=== PATIENT | male | born 1945 | race Caucasian/White ===

== ENCOUNTER 2017-05-03 08:00 | Outpatient (CLI) | payer MEDICARE, MEDICAID ==
[2017-05-03 12:59] LABS: BASOPHILS # (AUTO) 0.2 10^3/uL (0.0-0.1); BASOPHILS % (AUTO) 3.1 %; EOSINOPHILS # (AUTO) 0.3 10^3/uL (0.0-0.7); EOSINOPHILS % (AUTO) 3.9 %; HCT - HEMATOCRIT 38.2 % (42.0-52.0); HGB - HEMOGLOBIN 12.7 g/dL (14.0-18.0); LYMPHOCYTES # (AUTO) 2.4 10^3/uL (1.5-3.5); LYMPHOCYTES % (AUTO) 36.2 %; MEAN CORPUSCULAR HEMOGLOBIN 31.2 pg (27.0-31.0); MEAN CORPUSCULAR HGB CONC 33.3 g/dL (32.0-36.0); MEAN CORPUSCULAR VOLUME 93.5 fL (80.0-94.0); MEAN PLATELET VOLUME 8.8 fL (7.4-11.4); MONOCYTES # (AUTO) 0.7 10^3/uL (0.0-1.0); NEUTROPHILS % (AUTO) 45.8 %; NUCLEATED RED BLOOD CELLS AUTO 0.1 /100WBC; RED BLOOD COUNT 4.08 10^6/uL (4.70-6.10); RED CELL DISTRIBUTION WIDTH 13.3 % (12.0-15.0); UNCORRECTED WHITE BLOOD COUNT 6.6 x10^3/uL; WHITE BLOOD COUNT 6.6 x10^3/uL (4.8-10.8)
[2017-05-03 13:21] LABS: ALBUMIN/GLOBULIN RATIO 1.4 (1.0-2.2); CALCIUM 9.2 mg/dL (8.5-10.3); CREATININE 0.7 mg/dL (0.6-1.2); POTASSIUM 3.5 mmol/L (3.5-5.0); TOTAL PROTEIN 7.2 g/dL (6.7-8.2)
== END 2017-05-03 08:01 | disposition home or self-care (01) ==
LOC: LAB.N 08:00
PROVIDERS: ATTEND Family Medicine
DX: F03.90 Unspecified dementia, unspecified severity, without behavioral disturbance, psychotic disturbance, mood disturbance, and anxiety (principal)
CPT/HCPCS: 36415; 80053; 84443; 85025

== ENCOUNTER 2017-05-08 14:58 | Outpatient (CLI) | payer MEDICARE, MEDICAID ==
--- NOTE | 2017-05-09 19:47 | CT Report ---
DATE OF SERVICE: 05/08/2017 CT HEAD WITHOUT CONTRAST: 05/08/2017 CLINICAL INDICATION: Dementia, memory loss TECHNIQUE: Axial CT images of the brain were obtained without intravenous contrast. No previous exa m is available for comparison. In accordance with CT protocol optimization, one or more of the following dose reduction techniques w ere utilized for this exam: Automated exposure control, adjustment of mA and/or KV based on patient size , or use of iterative reconstructive technique. FINDINGS: The ventricles and sulci demonstrate mild symmetric enlargement, compatible with atrophy. Chronic ischemic changes are seen in the periventricular white matter structures. There is no evidence of intracranial hemorrhage, mass effect, or midline shift. The basilar cisterns are patent. The visual ized orbital contents and paranasal sinuses are unremarkable. IMPRESSION: Mild atrophy and chronic ischemic changes. No evidence of acute hemorrhage or mass effe ct. TD: 05/09/2017 09:46
== END 2017-05-08 14:59 | disposition home or self-care (01) ==
LOC: DI 14:58
PROVIDERS: ATTEND Family Medicine
DX: F03.90 Unspecified dementia, unspecified severity, without behavioral disturbance, psychotic disturbance, mood disturbance, and anxiety (principal); R41.3 Other amnesia; G31.9 Degenerative disease of nervous system, unspecified; I67.82 Cerebral ischemia
CPT/HCPCS: 70450

== ENCOUNTER 2017-10-21 10:07 | Outpatient (CLI) | payer MEDICARE, MEDICAID ==
[2017-10-21 13:31] LABS: BILIRUBIN,URINE NEGATIVE (NEGATIVE); GLUCOSE, URINE (UA) NEGATIVE (NEGATIVE); KETONES,URINE (UA) NEGATIVE (NEGATIVE); LEUKOCYTE ESTERASE, URINE NEGATIVE (NEGATIVE); NITRITE,URINE NEGATIVE (NEGATIVE); OCCULT BLOOD,URINE NEGATIVE (NEGATIVE); PROTEIN,URINE NEGATIVE (NEGATIVE); UROBILINOGEN,URINE 0.2 (NORMAL) E.U./dL (NORMAL)
[2017-10-21 13:37] LABS: BASOPHILS # (AUTO) 0.2 10^3/uL (0.0-0.1); BASOPHILS % (AUTO) 2.8 %; EOSINOPHILS # (AUTO) 0.3 10^3/uL (0.0-0.7); EOSINOPHILS % (AUTO) 3.9 %; HGB - HEMOGLOBIN 11.9 g/dL (14.0-18.0); LYMPHOCYTES # (AUTO) 2.6 10^3/uL (1.5-3.5); LYMPHOCYTES % (AUTO) 38.1 %; MEAN CORPUSCULAR HEMOGLOBIN 31.8 pg (27.0-31.0); MEAN CORPUSCULAR HGB CONC 32.8 g/dL (32.0-36.0); MEAN CORPUSCULAR VOLUME 96.9 fL (80.0-94.0); MEAN PLATELET VOLUME 7.8 fL (7.4-11.4); MONOCYTES # (AUTO) 0.7 10^3/uL (0.0-1.0); MONOCYTES % (AUTO) 9.9 %; NEUTROPHILS # (AUTO) 3.1 10^3/uL (1.5-6.6); NEUTROPHILS % (AUTO) 45.3 %; PLT - PLATELET COUNT 494 10^3/uL (130-450); RED BLOOD COUNT 3.73 10^6/uL (4.70-6.10); WHITE BLOOD COUNT 6.9 x10^3/uL (4.8-10.8)
[2017-10-21 13:44] LABS: BACTERIA,URINE None Seen /HPF (None Seen); CLARITY,URINE CLEAR (CLEAR); RBC,URINE None Seen /HPF (0-5); SQUAMOUS EPITHELIAL CELL,UR RARE Squamous (<= Few)
[2017-10-21 13:57] LABS: THYROID STIMULATING HORMONE 2.73 uIU/mL (0.34-5.60)
[2017-10-21 14:06] LABS: ALBUMIN 3.4 g/dL (3.2-5.5); ALKALINE PHOSPHATASE 68 IU/L (42-121); ALT ALANINE AMINOTRANSFERASE 17 IU/L (10-60); AST ASPARTATE AMINOTRANSFERASE 20 IU/L (10-42); BILIRUBIN,TOTAL 0.6 mg/dL (0.2-1.0); BUN - BLOOD UREA NITROGEN 17 mg/dL (6-20); CALCIUM 9.3 mg/dL (8.5-10.3); CARBON DIOXIDE - CO2 27 mmol/L (21-32); CHLORIDE 105 mmol/L (101-111); CHOL/HDL RATIO 3.7 (<5.0); CHOLESTEROL 232 mg/dL; CREATININE 0.6 mg/dL (0.6-1.2); GFR - MDRD 133 (>89); GLUCOSE 92 mg/dL (70-100); HDL CHOLESTEROL 63 mg/dL; LDL CHOLESTEROL,CALCULATED 155 mg/dL; LDL/HDL RATIO 2.5 (<3.6); SODIUM 139 mmol/L (135-145); TOTAL PROTEIN 6.8 g/dL (6.7-8.2); VLDL CHOLESTEROL 14 mg/dL
== END 2017-10-21 10:08 | disposition home or self-care (01) ==
LOC: LAB.WCP 10:07
PROVIDERS: ATTEND Family Medicine
DX: R63.4 Abnormal weight loss (principal); F03.90 Unspecified dementia, unspecified severity, without behavioral disturbance, psychotic disturbance, mood disturbance, and anxiety
CPT/HCPCS: 36415; 80053; 80061; 81001; 82607; 83721; 84443; 85025

== ENCOUNTER 2019-05-01 15:49 | Emergency (ER) | payer MEDICARE, MEDICAID ==
[2019-05-01 16:01] VITALS: BP 128/74
--- NOTE | 2019-05-01 16:23 | ED Physician Documentation ---
PD HPI FOCAL NEURO - Stated complaint Stated Complaint: DIFFICULTY W/ MEMORY - Chief complaint Chief Complaint: Neuro - History obtained from History obtained from: Patient - History of Present Illness Timing - onset: Other (This is a 73-year-old gentleman who for the last 4 years or so has had memory difficulties. The moved up from [place], and has been ruminating on getting follow-up. He sought care today because his insurance became active today. There is no acute issue. He says for the last 4 years slowly he has been losing his memory and having trouble with his affairs. However that said in talking to him he still manages pretty well. He remembers what he had for breakfast, work on a car he drives. He knows where he lives. He says his only on occasion that his memory affects him.) Review of Systems Constitutional: denies: Fever, Chills Ears: denies: Drainage/discharge Nose: denies: Rhinorrhea / runny nose, Congestion Throat: denies: Sore throat PD PAST MEDICAL HISTORY - Allergies Allergies/Adverse Reactions: Allergies Allergy/AdvReac Type Severity Reaction Status Date / Time No Known Drug Allergies Allergy Verified 05/01/19 15:54 - Social History Does the pt smoke?: No Smoking Status: Former smoker PD ED PE NORMAL - Vitals Vital signs reviewed: Yes - General General: Alert and oriented X 3, Other (He is alert and oriented x3, he knows what he had for breakfast. He knows why he is here. He remembers the situation that caused him to seek care today which was specifically that his insurance just became active.) - HEENT HEENT: PERRL, EOMI - Neck Neck: Supple, no meningeal sign, No bony TTP - Cardiac Cardiac: RRR, No murmur - Respiratory Respiratory: No respiratory distress, Clear bilaterally - Abdomen Abdomen: Soft, Non tender - Back Back: No CVA TTP, No spinal TTP - Derm Derm: Normal color, Warm and dry - Extremities Extremities: No edema, No calf tenderness / cord - Neuro Neuro: Alert and oriented X 3, automotive fuel systems converter 2-12 intact, No motor deficit, No sensory deficit, Normal speech - Psych Psych: Normal mood, Normal affect Results - Vitals Vitals: Vital Signs - 24 hr 05/01/19 15:54 Temperature 36.5 C Heart Rate 83 Respiratory 14 Rate Blood Pressure 128/74 O2 Saturation 96 Oxygen O2 Source T-piece PD MEDICAL DECISION MAKING - ED course ED course: This is a 73-year-old gentleman with what seems like smoldering mild dementia. No evidence of emergency medical condition, primary care follow-up was advised. Departure - Departure Disposition: 01 Home, Self Care Clinical Impression: Dementia Qualifiers: Dementia type: unspecified type Dementia behavioral disturbance: without behavioral disturbance Qualified Code(s): F03.90 - Unspecified dementia without behavioral disturbance Condition: Good Record reviewed to determine appropriate education?: Yes Instructions: ED Dementia Caregiver Support, ED Dementia Alzheimer Follow-Up: [facility] [Provider Group] Comments: As discussed, it seems like you have mild dementia. There are some specific treatments for dementia but these are best discussed with your primary care physician as opposed to in the emergency department. Return for new or worsening symptoms. Follow-up with [address] physicians in Dr. Clement's office, call today or tomorrow for an appointment. At some point it may not be safe for you to drive or live alone anymore. It is always best to start to think about how you will manage your affairs when that time comes.
== END 2019-05-01 16:28 | disposition home or self-care (01) ==
LOC: ED 15:49
DX: F03.90 Unspecified dementia, unspecified severity, without behavioral disturbance, psychotic disturbance, mood disturbance, and anxiety (principal); Z87.891 Personal history of nicotine dependence
CPT/HCPCS: 99281; 99283

== ENCOUNTER 2019-09-16 09:49 | Emergency (ER) | payer MEDICARE, MEDICAID ==
[2019-09-16 10:54] LABS: BASOPHILS # (AUTO) 0.1 10^3/uL (0.0-0.1); BASOPHILS % (AUTO) 1.4 %; EOSINOPHILS # (AUTO) 0.3 10^3/uL (0.0-0.7); EOSINOPHILS % (AUTO) 3.4 %; HGB - HEMOGLOBIN 13.3 g/dL (14.0-18.0); LYMPHOCYTES # (AUTO) 3.2 10^3/uL (1.5-3.5); LYMPHOCYTES % (AUTO) 34.6 %; MEAN CORPUSCULAR HEMOGLOBIN 31.6 pg (27.0-31.0); MEAN CORPUSCULAR HGB CONC 32.6 g/dL (32.0-36.0); MEAN CORPUSCULAR VOLUME 96.9 fL (80.0-94.0); MEAN PLATELET VOLUME 9.7 fL (7.4-11.4); MONOCYTES % (AUTO) 11.1 %; NEUTROPHILS # (AUTO) 4.6 10^3/uL (1.5-6.6); NEUTROPHILS % (AUTO) 49.2 %; PLT - PLATELET COUNT 313 10^3/uL (130-450); RED BLOOD COUNT 4.21 10^6/uL (4.70-6.10); RED CELL DISTRIBUTION WIDTH 13.5 % (12.0-15.0); WHITE BLOOD COUNT 9.3 x10^3/uL (4.8-10.8)
[2019-09-16 11:07] LABS: ALBUMIN 3.8 g/dL (3.2-5.5); ALBUMIN/GLOBULIN RATIO 1.2 (1.0-2.2); BILIRUBIN,TOTAL 0.5 mg/dL (0.2-1.0); CALCIUM 8.9 mg/dL (8.5-10.3); CREATININE 0.7 mg/dL (0.6-1.2); MAGNESIUM 2.4 mg/dL (1.7-2.8); TOTAL PROTEIN 7.1 g/dL (6.7-8.2)
[2019-09-16 11:26] LABS: THYROID STIMULATING HORMONE 2.76 uIU/mL (0.34-5.60)
--- NOTE | 2019-09-16 11:34 | ED Physician Documentation ---
PD HPI ALTERED MENTAL STATUS - Stated complaint Stated Complaint: MEMORY LOSS - Chief complaint Chief Complaint: Neuro - History obtained from History obtained from: Patient - History of Present Illness Timing - onset: How many months ago (has noted several months (6 or more) of worsening short term memory. No noted headaches, vision changes, balance problems, nor focal weaknesses.) Timing - duration: Months Timing - details: Gradual onset, Waxing and waning Associated symptoms: No: Fever, Headache, Stiff neck, Dyspnea, Cough, NVD Contributing factors: No: Anticoagulated, Diabetic, New medication, Recent med change, Recent illness, Substance abuse Basline status: Alert and oriented X 3, Ambulatory Similar symptoms before: No diagnosis Recently seen: Emergency Dept (seen in ER few months ago with similar complaint, and was referred to local primary care clinic. He has not been able to make milan yet due to changed clinic openings. He was in area today and came to [facility] to make appt with primary care. had symptoms of memory problem, so was "talked into" being evaluated in ER.) Review of Systems Constitutional: denies: Fever, Chills, Myalgias Nose: denies: Rhinorrhea / runny nose, Congestion Throat: denies: Sore throat Respiratory: denies: Cough GI: denies: Nausea, Vomiting, Diarrhea : reports: Hesitancy. denies: Dysuria, Hematuria Skin: denies: Rash, Lesions Neurologic: denies: Focal weakness, Numbness, Difficulty speaking, Near syncope, Altered mental status, Headache Psychiatric: denies: Depressed, Anxiety, Insomnia PD PAST MEDICAL HISTORY - Past Medical History Past Medical History: No Cardiovascular: None Respiratory: None Neuro: None Endocrine/Autoimmune: None Psych: None Derm: None - Past Surgical History Past Surgical History: No - Present Medications Home Medications: Ambulatory Orders Medication Instructions Recorded Confirmed Ginkgo Biloba 500 mg PO DAILY #60 capsule 09/16/19 - Allergies Allergies/Adverse Reactions: Allergies Allergy/AdvReac Type Severity Reaction Status Date / Time No Known Drug Allergies Allergy Verified 09/16/19 10:10 - Social History Does the pt smoke?: No Smoking Status: Never smoker Does the pt drink ETOH?: No Does the pt have substance abuse?: No - Immunizations Immunizations are current?: Yes PD ED PE NORMAL - Vitals Vital signs reviewed: Yes - General General: Alert and oriented X 3, No acute distress, Well developed/nourished - HEENT HEENT: PERRL, EOMI, Moist mucous membranes, Pharynx benign - Neck Neck: Supple, no meningeal sign, No adenopathy, No bruit - Cardiac Cardiac: RRR, No murmur - Respiratory Respiratory: Clear bilaterally - Abdomen Abdomen: Soft, Non tender - Derm Derm: Normal color, Warm and dry - Extremities Extremities: No tenderness to palpate, Normal ROM s pain - Neuro Neuro: Alert and oriented X 3, gamemaster 2-12 intact, No motor deficit, No sensory deficit, Normal speech, Other Eye Opening: Spontaneous Motor: Obeys Commands Verbal: Oriented GCS Score: 15 - Psych Psych: Normal mood, Normal affect Results - Vitals Vitals: Vital Signs - 24 hr 09/16/19 09/16/19 09:52 11:54 Temperature 36 C L Heart Rate 80 70 Respiratory 16 15 Rate Blood Pressure 148/91 H 118/70 O2 Saturation 99 100 Oxygen O2 Source Room air - Labs Labs: Laboratory Tests 09/16/19 09/16/19 09/16/19 10:05 10:05 10:05 WBC 9.3 RBC 4.21 L Hgb 13.3 L Hct 40.8 L MCV 96.9 H MCH 31.6 H MCHC 32.6 RDW 13.5 Plt Count 313 MPV 9.7 Neut # (Auto) 4.6 Lymph # (Auto) 3.2 [place] # (Auto) 1.0 Eos # (Auto) 0.3 Baso # (Auto) 0.1 Absolute Nucleated RBC 0.00 Nucleated RBC % 0.0 ESR 18 Sodium 139 Potassium 3.9 Chloride 106 Carbon Dioxide 28 Anion Gap 5.0 L BUN 15 Creatinine 0.7 Estimated GFR (MDRD) 111 Glucose 115 H Calcium 8.9 Magnesium 2.4 Total Bilirubin 0.5 AST 23 ALT 25 Alkaline Phosphatase 85 Total Protein 7.1 Albumin 3.8 Globulin 3.3 Albumin/Globulin Ratio 1.2 Lipase 36 Vitamin B12 TSH 09/16/19 10:05 WBC RBC Hgb Hct MCV MCH MCHC RDW Plt Count MPV Neut # (Auto) Lymph # (Auto) [place]ingham # (Auto) Eos # (Auto) Baso # (Auto) Absolute Nucleated RBC Nucleated RBC % ESR Sodium Potassium Chloride Carbon Dioxide Anion Gap BUN Creatinine Estimated GFR (MDRD) Glucose Calcium Magnesium Total Bilirubin AST ALT Alkaline Phosphatase Total Protein Albumin Globulin Albumin/Globulin Ratio Lipase Vitamin B12 371 TSH 2.76 - Rads (name of study) head CT Radiology: Prelim report reviewed (no acute process), See rad report PD MEDICAL DECISION MAKING - ED course Complexity details: reviewed results, considered differential (sounds like a slow decline memory loss/cognitive process. He says it is worse the past month or so. Can get some labs regarding dementia. UpToDate suggests workup with imaging per AAN, but not required by other references. I ordered the suggested labs per UTD article. ), d/w patient Departure - Departure Disposition: Home, Self Care Clinical Impression: Memory deficit Condition: Stable Record reviewed to determine appropriate education?: Yes Instructions: ED Confusion Follow-Up: [facility] [Provider Group] Prescriptions: Ginkgo Biloba 500 mg PO DAILY #60 capsule Comments: Your CT scan and basic initial blood tests are normal. Some of the blood tests are still pending and will result later or tomorrow. Call the attached phone number to set up an appointment for a new provider at the [facility]. Sorry we are unable to actually make an appointment for you from the ER here because of the current changes in the usual patterns with the coronavirus. There are not many well proven interventions for chronic memory loss. Some studies have shown some slight improvement with vitamin B complexes and you are ready take a multivitamin supplement so that is good. There may be some benefit in some people from ginkgo biloba and you could try that daily for a month or 2 and see if you notice a difference. Otherwise stay well-hydrated and regular diet are also good things. Discharge Date/Time: 09/16/19 11:55
[2019-09-16 11:55] VITALS: BP 118/70
--- NOTE | 2019-09-16 11:58 | CT Report ---
Reason: memory deficit recent Procedure Date: 09/16/2019 Accession Number: [id number] / [id number] Procedure: CT - HEAD WO CPT Code: Final Report FULL RESULT: EXAM: CT HEAD WITHOUT IV CONTRAST EXAM DATE: 09/16/2019. CLINICAL HISTORY: Memory deficit, recent. COMPARISON: Head CT without IV contrast done 05/08/2017. TECHNIQUE: Multiaxial CT images were obtained from the foramen magnum to the vertex. Reformats: Sagittal and coronal. IV contrast: None. In accordance with CT protocol optimization, one or more of the following dose reduction techniques were utilized for this exam: automated exposure control, adjustment of mA and/or KV based on patient size, or use of iterative reconstructive technique. FINDINGS: Parenchyma: No intraparenchymal hemorrhage. No evidence of mass, midline shift, or CT findings of infarction. Morales-white differentiation is distinct. Extraaxial Spaces: Normal for age. No subdural or epidural collections identified. Ventricles: Normal for age. Sinuses: Minimal ethmoid sinus mucosal thickening is unchanged. Sinuses are otherwise clear. Mastoids are normally aerated. Bones: No evidence of fracture or calvarial defect. Soft Tissues: Normal. IMPRESSION: No acute abnormality. Mild cerebral atrophy. Minimal chronic ethmoid sinusitis. No change from 05/08/2017. RADIA
== END 2019-09-16 11:55 | disposition home or self-care (01) ==
LOC: ED 09:49
DX: R41.3 Other amnesia (principal)
CPT/HCPCS: 36415; 70450; 80053; 81599; 82607; 82652; 83690; 83735; 84443; 85025; 85651; 86780; 93005; 99283; 99284

== ENCOUNTER 2019-09-23 15:00 | Emergency (ER) | payer MEDICARE, MEDICAID ==
[2019-09-23 15:09] VITALS: BP 142/115
--- NOTE | 2019-09-23 15:25 | ED Physician Documentation ---
History of Present Illness - Stated complaint Stated Complaint: RIB PAIN - Chief complaint Chief Complaint: General - History obtained from History obtained from: Patient - History of Present Illness Timing: Today Pain level max: 6 Pain level now: 5 - Additonal information Additional information: 74-year-old male states that he fell twice today. Landing both times on his left ribs and wants them checked. He states that the pain is not currently very bad, rates it as a 1 or 2 out of 10. Worse with movement and better with rest. No difficulty breathing. No head injury. No neck or back pain. Review of Systems Constitutional: denies: Fever, Chills GI: denies: Vomiting, Diarrhea Skin: denies: Rash Musculoskeletal: denies: Neck pain, Back pain Neurologic: denies: Headache, Head injury PD PAST MEDICAL HISTORY - Past Medical History Cardiovascular: None Respiratory: None Neuro: None Endocrine/Autoimmune: None Psych: None Derm: None - Past Surgical History Past Surgical History: No - Present Medications Home Medications: Ambulatory Orders Medication Instructions Recorded Confirmed Ginkgo Biloba 500 mg PO DAILY #60 capsule 09/16/19 Lidocaine Patch 5% [Lidoderm Patch] 1 patch TOP DAILY PRN #10 patch 09/23/19 Meloxicam [Mobic] 7.5 mg PO BID PRN #20 tablet 09/23/19 - Allergies Allergies/Adverse Reactions: Allergies Allergy/AdvReac Type Severity Reaction Status Date / Time No Known Drug Allergies Allergy Verified 09/16/19 10:10 - Social History Does the pt smoke?: No Smoking Status: Former smoker Does the pt drink ETOH?: No Does the pt have substance abuse?: No - Immunizations Immunizations are current?: Yes PD ED PE NORMAL - Vitals Vital signs reviewed: Yes - General General: Alert and oriented X 3, No acute distress, Well developed/nourished - HEENT HEENT: Atraumatic, PERRL, Moist mucous membranes - Neck Neck: Supple, no meningeal sign, No bony TTP - Cardiac Cardiac: RRR, Strong equal pulses - Respiratory Respiratory: No respiratory distress, Clear bilaterally, Other (Mild tender to palpation over the left anterior ribs, approximately 7 through 10. No crepitus. No ecchymosis.) - Abdomen Abdomen: Soft, Non tender, Non distended - Back Back: No spinal TTP - Derm Derm: Warm and dry - Extremities Extremities: No deformity, No tenderness to palpate, Normal ROM s pain - Neuro Neuro: Alert and oriented X 3 - Psych Psych: Normal mood, Normal affect Results - Vitals Vitals: Vital Signs - 24 hr 09/23/19 15:05 Temperature 37.2 C Heart Rate 68 Respiratory 16 Rate Blood Pressure 142/115 H O2 Saturation 98 Oxygen O2 Source Room air - Rads (name of study) rib xray Radiology: Prelim report reviewed, EMP read contemporaneously, See rad report (Nondisplaced left 10th rib fracture) PD MEDICAL DECISION MAKING - ED course Complexity details: reviewed results, re-evaluated patient, considered differential, d/w patient ED course: Patient with a nondisplaced left 10th rib fracture. We will place him on meloxicam and Lidoderm patches for home. No hemothorax or pneumothorax. Patient counseled regarding signs and symptoms for which I believe and urgent re- evaluation would be necessary. Patient with good understanding of and agreement to plan and is comfortable going home at this time This document was made in part using voice recognition software. While efforts are made to proofread this document, sound alike and grammatical errors may occur. Departure - Departure Disposition: 01 Home, Self Care Clinical Impression: Closed rib fracture Qualifiers: Encounter type: initial encounter Rib fracture type: single rib Laterality: left Qualified Code(s): S22.32XA - Fracture of one rib, left side, initial encounter for closed fracture Condition: Good Instructions: ED Fx Rib Follow-Up: your,doctor in 1 week [Other] Prescriptions: Lidocaine Patch 5% [Lidoderm Patch] 1 patch TOP DAILY PRN #10 patch PRN Reason: pain Meloxicam [Mobic] 7.5 mg PO BID PRN #20 tablet PRN Reason: Pain Comments: You do have a nondisplaced fracture of your left 10th rib. Return if you worsen. Follow-up with your doctor for further care. You can use the lidocaine patch for up to 12 hours at a time over the area of pain. It needs to be off for 12 hours after being on for 12 hours. Discharge Date/Time: 09/23/19 16:00
--- NOTE | 2019-09-23 15:46 | XRAY Report ---
Reason: fall, L rib pain Procedure Date: 09/23/2019 Accession Number: [id number] / [id number] Procedure: XR - Ribs w/PA Chest LT CPT Code: Final Report FULL RESULT: EXAM: LEFT RIB RADIOGRAPHY EXAM DATE: 09/23/2019 03:34 PM. CLINICAL HISTORY: Fall, L rib pain. COMPARISON: None. TECHNIQUE: 1 view of the chest and 2 views of the ribs. FINDINGS: Bones: Nondisplaced fracture distal left 10th rib. Lungs: Negative for pneumothorax. Mild increased pulmonary markings right costophrenic angle. Scar or subsegmental atelectasis left lung base. Mediastinum: Trachea is midline. Heart size is normal. Other: None. IMPRESSION: Nondisplaced fracture distal left 10th rib. RADIA
== END 2019-09-23 16:00 | disposition home or self-care (01) ==
LOC: ED 15:00
DX: S22.32XA Fracture of one rib, left side, initial encounter for closed fracture (principal); W19.XXXA Unspecified fall, initial encounter; Z87.891 Personal history of nicotine dependence
CPT/HCPCS: 99283; 99284

== ENCOUNTER 2019-09-30 11:33 | Emergency (ER) | payer MEDICARE, MEDICAID ==
[2019-09-30 11:46] VITALS: BP 128/72
--- NOTE | 2019-09-30 13:20 | XRAY Report ---
Reason: injury L ribs Procedure Date: 09/30/2019 Accession Number: [id number] / [id number] Procedure: XR - Ribs 2 View LT CPT Code: Final Report FULL RESULT: EXAM: LEFT RIB RADIOGRAPHY 2 VIEWS EXAM DATE: 09/30/2019. CLINICAL HISTORY: Injury to the left ribs. COMPARISON: Chest and left ribs done 09/23/2019. TECHNIQUE: Anterior and posterior oblique views of the left ribs. FINDINGS: Bones: Nondisplaced fracture of the lateral left eighth rib, not visible on the prior examination. Previously described left 10th rib fracture not currently visible. Lungs: Mild lower lung atelectasis is unchanged. No pleural fluid or pneumothorax. Mediastinum: Cardiac and mediastinal contours as visualized appear normal. Other: Multiple left upper abdominal surgical clips. IMPRESSION: Nondisplaced fracture of the lateral left eighth rib, not visible on 09/23/2019. The previously described 10th rib fracture is not currently visible. Mild lower lung atelectasis is unchanged. No pleural fluid or pneumothorax evident. RADIA
--- NOTE | 2019-09-30 13:44 | ED Physician Documentation ---
History of Present Illness - Stated complaint Stated Complaint: rib pain - Chief complaint Chief Complaint: General - History obtained from History obtained from: Patient - Additonal information Additional information: Patient comes emergency department complaining of left-sided rib pain for the last 6 to 7 days after lifting and transferring some heavy boxes. Patient states that he felt a pop at that time and instant pain. He was beginning to feel little bit better, But then today, lifted another heavy object and felt pain in the same place again. Patient states he went for a walk with a friend and felt the pain was getting worse and worse, so he decided to get checked out. Patient denies cough, fever, or chills. No abdominal pain. No shortness of breath, other than feeling that he cannot take a deep breath because it hurts. No other complaints at this time Review of Systems Ten Systems: 10 systems reviewed and negative Constitutional: reports: Reviewed and negative Eyes: reports: Reviewed and negative Ears: reports: Reviewed and negative Nose: reports: Reviewed and negative Throat: reports: Reviewed and negative Cardiac: reports: Chest pain / pressure Respiratory: reports: Reviewed and negative GI: reports: Reviewed and negative : reports: Reviewed and negative Skin: reports: Reviewed and negative Musculoskeletal: reports: Reviewed and negative Neurologic: reports: Reviewed and negative Psychiatric: reports: Reviewed and negative Endocrine: reports: Reviewed and negative Immunocompromised: reports: Reviewed and negative PD PAST MEDICAL HISTORY - Past Medical History Cardiovascular: None Respiratory: None Neuro: None Endocrine/Autoimmune: None Psych: None Derm: None - Past Surgical History Past Surgical History: No - Present Medications Home Medications: Ambulatory Orders Medication Instructions Recorded Confirmed Ginkgo Biloba 500 mg PO DAILY #60 capsule 09/16/19 Lidocaine Patch 5% [Lidoderm Patch] 1 patch TOP DAILY PRN #10 patch 09/23/19 Meloxicam [Mobic] 7.5 mg PO BID PRN #20 tablet 09/23/19 Hydrocodone/Acetaminophen 1 - 2 each PO Q6H PRN #14 tablet 09/30/19 [Hydrocodon-Acetaminophen 5-325] - Allergies Allergies/Adverse Reactions: Allergies Allergy/AdvReac Type Severity Reaction Status Date / Time No Known Drug Allergies Allergy Verified 09/30/19 11:40 - Social History Does the pt smoke?: No Smoking Status: Never smoker Does the pt drink ETOH?: No Does the pt have substance abuse?: No - Immunizations Immunizations are current?: Yes PD ED PE NORMAL - Vitals Vital signs reviewed: Yes - General General: Alert and oriented X 3, No acute distress - HEENT HEENT: Atraumatic, PERRL, EOMI, Moist mucous membranes - Neck Neck: Supple, no meningeal sign - Cardiac Cardiac: RRR, No murmur, Strong equal pulses, Other (Moderate tenderness over the patient's left lateral rib cage over the levels of ribs 8 through 10. No step-off. No soft tissue swelling.) - Respiratory Respiratory: No respiratory distress, Clear bilaterally - Abdomen Abdomen: Soft, Non tender, Non distended - Back Back: Other (No posterior rib tenderness.) - Derm Derm: Normal color, Warm and dry, No rash - Extremities Extremities: No deformity - Neuro Neuro: Alert and oriented X 3, Other (Grossly normal) - Psych Psych: Normal mood, Normal affect Results - Vitals Vitals: Vital Signs - 24 hr 09/30/19 11:40 Temperature 37 C Heart Rate 80 Respiratory 14 Rate Blood Pressure 128/72 O2 Saturation 97 Oxygen O2 Source Room air - Rads (name of study) L ribs Xray Radiology: Final report received, EMP read indepedently, See rad report (Left eighth rib fracture; previously noted 10th rib fracture not appreciated on this study.) PD MEDICAL DECISION MAKING - ED course Complexity details: reviewed results, re-evaluated patient, considered differential, d/w patient ED course: Patient was worked up with x-ray of the ribs which showed a fracture of patient's left eighth rib, which had not shown up on a previous x-ray, but not of the 10th rib, which patient had previously demonstrated a fracture. I discussed home management of the symptoms with the patient, as well as the usual indications for return. Departure - Departure Disposition: 01 Home, Self Care Clinical Impression: Rib fractures Qualifiers: Encounter type: sequela Rib fracture type: single rib Fracture type: closed Laterality: left Qualified Code(s): S22.32XS - Fracture of one rib, left side, sequela Condition: Stable Instructions: ED Fx Rib Prescriptions: Hydrocodone/Acetaminophen [Hydrocodon-Acetaminophen 5-325] 1 - 2 each PO Q6H PRN #14 tablet PRN Reason: pain Comments: Your tests show a fracture of your eighth rib on the left, which was not present on your last set of x-rays. However, your 10th rib looks better now than it did on previous x-rays. Please take the pain medication, as needed. Focus on taking deep breaths to help you avoid getting pneumonia from to shallow breathing. Your ribs will heal themselves in the next 4 to 6 weeks, and the pain will steadily get better over that time. If you develop fevers or chills, especially with a cough and shortness of breath that is worsening, please return to the emergency department. Discharge Date/Time: 09/30/19 14:02
== END 2019-09-30 14:02 | disposition home or self-care (01) ==
LOC: ED 11:33
DX: S22.32XA Fracture of one rib, left side, initial encounter for closed fracture (principal); X50.0XXA Overexertion from strenuous movement or load, initial encounter; Y93.89 Activity, other specified
CPT/HCPCS: 99283; 99284

== ENCOUNTER 2020-03-10 12:29 | Emergency (ER) | payer MEDICARE, MEDICAID ==
[2020-03-10 13:24] LABS: BASOPHILS # (AUTO) 0.1 10^3/uL (0.0-0.1); BASOPHILS % (AUTO) 1.1 %; EOSINOPHILS # (AUTO) 0.3 10^3/uL (0.0-0.7); EOSINOPHILS % (AUTO) 3.2 %; HGB - HEMOGLOBIN 13.3 g/dL (14.0-18.0); LYMPHOCYTES # (AUTO) 3.1 10^3/uL (1.5-3.5); LYMPHOCYTES % (AUTO) 34.1 %; MEAN CORPUSCULAR HEMOGLOBIN 31.6 pg (27.0-31.0); MEAN CORPUSCULAR HGB CONC 32.2 g/dL (32.0-36.0); MEAN CORPUSCULAR VOLUME 98.1 fL (80.0-94.0); MEAN PLATELET VOLUME 8.7 fL (7.4-11.4); MONOCYTES # (AUTO) 0.9 10^3/uL (0.0-1.0); MONOCYTES % (AUTO) 10.2 %; NEUTROPHILS # (AUTO) 4.6 10^3/uL (1.5-6.6); NEUTROPHILS % (AUTO) 50.7 %; PLT - PLATELET COUNT 339 10^3/uL (130-450); RED BLOOD COUNT 4.21 10^6/uL (4.70-6.10)
[2020-03-10 13:42] LABS: ALBUMIN 3.8 g/dL (3.2-5.5); ALBUMIN/GLOBULIN RATIO 1.1 (1.0-2.2); BILIRUBIN,TOTAL 0.8 mg/dL (0.2-1.0); CALCIUM 9.2 mg/dL (8.5-10.3); CREATININE 0.7 mg/dL (0.6-1.2); TOTAL PROTEIN 7.2 g/dL (6.7-8.2)
--- NOTE | 2020-03-10 14:26 | ED Physician Documentation ---
PD HPI ALTERED MENTAL STATUS - Stated complaint Stated Complaint: MEMORY ISSUES - Chief complaint Chief Complaint: Neuro - History obtained from History obtained from: Patient, Friend - History of Present Illness Timing - duration: Years Timing - details: Waxing and waning Quality / character: Confused, Disoriented Associated symptoms: No: Fever, Headache, Stiff neck, Dyspnea, Cough, NVD, Urinary sx, General weakness Contributing factors: Known dementia. No: Anticoagulated, Diabetic, Recent injury, Intoxicated, Substance abuse Similar symptoms before: Diagnosis (Dementia has been seen in the emergency department several times this year for same) - Additional information Additional information: 74-year-old male presents to the emergency department stating that he has had memory issues for the past several years. His friend brought him in today because they feel like his memory has gotten worse over the past few days. Denies any recent trauma or falls. He states that he does not know who his primary care doctor is. He has been diagnosed with dementia for many years now. Review of Systems Constitutional: denies: Fever, Chills Ears: denies: Ear pain Nose: denies: Rhinorrhea / runny nose, Congestion Throat: denies: Sore throat Cardiac: denies: Chest pain / pressure Respiratory: denies: Cough GI: denies: Abdominal Pain, Vomiting, Diarrhea : denies: Dysuria, Frequency, Hesitancy Skin: denies: Rash Musculoskeletal: denies: Neck pain, Back pain Neurologic: denies: Focal weakness, Numbness, Seizure, Headache PD PAST MEDICAL HISTORY - Past Medical History Cardiovascular: None Respiratory: None Neuro: Dementia Endocrine/Autoimmune: None Psych: None Derm: None - Past Surgical History Past Surgical History: No - Present Medications Home Medications: Ambulatory Orders Medication Instructions Recorded Confirmed Ginkgo Biloba 500 mg PO DAILY #60 capsule 09/16/19 Lidocaine Patch 5% [Lidoderm Patch] 1 patch TOP DAILY PRN #10 patch 09/23/19 Meloxicam [Mobic] 7.5 mg PO BID PRN #20 tablet 09/23/19 Hydrocodone/Acetaminophen 1 - 2 each PO Q6H PRN #14 tablet 09/30/19 [Hydrocodon-Acetaminophen 5-325] - Allergies Allergies/Adverse Reactions: Allergies Allergy/AdvReac Type Severity Reaction Status Date / Time No Known Drug Allergies Allergy Verified 03/10/20 12:31 - Social History Does the pt smoke?: No Smoking Status: Former smoker Does the pt drink ETOH?: No Does the pt have substance abuse?: No - Immunizations Immunizations are current?: Yes PD ED PE NORMAL - Vitals Vital signs reviewed: Yes - General General: No acute distress, Other (alert , Oriented to person and place. Not to time) - HEENT HEENT: Atraumatic, PERRL, Ears normal, Moist mucous membranes, Pharynx benign - Neck Neck: Supple, no meningeal sign, No bony TTP - Cardiac Cardiac: RRR - Respiratory Respiratory: No respiratory distress, Clear bilaterally - Abdomen Abdomen: Soft, Non tender, Non distended - Derm Derm: Warm and dry - Extremities Extremities: No edema, No calf tenderness / cord - Neuro Neuro: raveler 2-12 intact, No motor deficit, No sensory deficit, Normal speech Eye Opening: Spontaneous Motor: Obeys Commands Verbal: Confused GCS Score: 14 - Psych Psych: Normal mood, Normal affect Results - Vitals Vitals: Vital Signs - 24 hr 03/10/20 03/10/20 12:31 15:15 Temperature 36.5 C 36.9 C Heart Rate 57 L 61 Respiratory 16 18 Rate Blood Pressure 145/83 H 115/81 H O2 Saturation 92 97 Oxygen O2 Source Room air - Labs Labs: Laboratory Tests 03/10/20 03/10/20 03/10/20 13:18 13:18 14:15 WBC 9.0 RBC 4.21 L Hgb 13.3 L Hct 41.3 L MCV 98.1 H MCH 31.6 H MCHC 32.2 RDW 13.0 Plt Count 339 MPV 8.7 Neut # (Auto) 4.6 Lymph # (Auto) 3.1 [place] # (Auto) 0.9 Eos # (Auto) 0.3 Baso # (Auto) 0.1 Absolute Nucleated RBC 0.00 Nucleated RBC % 0.0 Sodium 138 Potassium 4.1 Chloride 100 L Carbon Dioxide 28 Anion Gap 10.0 BUN 13 Creatinine 0.7 Estimated GFR (MDRD) 111 Glucose 100 Calcium 9.2 Total Bilirubin 0.8 AST 22 ALT 20 Alkaline Phosphatase 79 Total Protein 7.2 Albumin 3.8 Globulin 3.4 Albumin/Globulin Ratio 1.1 Lipase 39 Urine Color YELLOW Urine Clarity CLEAR Urine pH 7.0 Ur Specific [place] 1.010 Urine Protein NEGATIVE Urine Glucose (UA) NEGATIVE Urine Ketones NEGATIVE Urine Occult Blood NEGATIVE Urine Nitrite NEGATIVE Urine Bilirubin NEGATIVE Urine Urobilinogen 0.2 (NORMAL) Ur Leukocyte Esterase NEGATIVE Ur Microscopic Review NOT INDICATED Urine Culture Comments NOT INDICATED PD MEDICAL DECISION MAKING - ED course Complexity details: reviewed results, re-evaluated patient, considered differential, d/w patient, d/w family ED course: Patient with a longstanding history of dementia. No acute neurological deficits. No acute laboratory findings. No history of trauma or falls. No indication for repeat head CT at this time. He appears at his normal baseline per old ER documentation. Recommend that he follow-up with the PCP for further care. Patient and friend counseled regarding signs and symptoms for which I believe and urgent re-evaluation would be necessary. Patient and friend with good understanding of and agreement to plan and is comfortable going home at this time This document was made in part using voice recognition software. While efforts are made to proofread this document, sound alike and grammatical errors may occur. Departure - Departure Disposition: 01 Home, Self Care Clinical Impression: Dementia Qualifiers: Dementia type: unspecified type Dementia behavioral disturbance: without behavioral disturbance Qualified Code(s): F03.90 - Unspecified dementia without behavioral disturbance Condition: Good Instructions: Dementia Follow-Up: [facility] [Provider Group] [facility] [Provider Group] [facility] [Provider Group] Comments: You need to follow up with a primary care doctor. They can help you with medications for your dementia and memory. Call the clinic for an appointment. Discharge Date/Time: 03/10/20 15:20
[2020-03-10 14:30] LABS: BILIRUBIN,URINE NEGATIVE (NEGATIVE); CLARITY,URINE CLEAR (CLEAR); GLUCOSE, URINE (UA) NEGATIVE (NEGATIVE); KETONES,URINE (UA) NEGATIVE (NEGATIVE); LEUKOCYTE ESTERASE, URINE NEGATIVE (NEGATIVE); NITRITE,URINE NEGATIVE (NEGATIVE); OCCULT BLOOD,URINE NEGATIVE (NEGATIVE); PROTEIN,URINE NEGATIVE (NEGATIVE); UROBILINOGEN,URINE 0.2 (NORMAL) E.U./dL (NORMAL)
[2020-03-10 15:15] VITALS: BP 115/81
== END 2020-03-10 15:20 | disposition home or self-care (01) ==
LOC: ED 12:29
DX: F03.90 Unspecified dementia, unspecified severity, without behavioral disturbance, psychotic disturbance, mood disturbance, and anxiety (principal); R41.3 Other amnesia; Z87.891 Personal history of nicotine dependence
CPT/HCPCS: 36415; 80053; 81001; 81003; 83690; 85025; 87086; 99283; 99284

== ENCOUNTER 2020-03-17 08:00 | Outpatient (CLI) | payer MEDICARE, MEDICAID | END 2020-03-17 08:01 | disposition home or self-care (01) | LOC: LAB.WCP 08:00 | PROVIDERS: ATTEND Internal Medicine | DX: R41.3 Other amnesia (principal) | CPT/HCPCS: 36415; 81599; 82607; 84443; 86592 ==

== ENCOUNTER 2021-03-27 06:04 | Outpatient (CLI) | payer MEDICARE, MEDICAID | END 2021-03-27 06:05 | disposition critical access hospital (66) | LOC: EMS 06:04 | DX: R10.9 Unspecified abdominal pain (principal) | CPT/HCPCS: A0425; A0429 ==

== ENCOUNTER 2021-03-27 06:22 | Emergency (ER) | payer MEDICARE, MEDICAID ==
[2021-03-27 07:16] LABS: ALBUMIN 3.5 g/dL (3.2-5.5); ALBUMIN/GLOBULIN RATIO 0.9 (1.0-2.2); BILIRUBIN,TOTAL 0.8 mg/dL (0.2-1.0); CALCIUM 8.9 mg/dL (8.5-10.3); CREATININE 0.7 mg/dL (0.6-1.2); POTASSIUM 3.8 mmol/L (3.5-5.0); TOTAL PROTEIN 7.2 g/dL (6.7-8.2)
[2021-03-27 07:21] LABS: BASOPHILS % (AUTO) 1.3 %; EOSINOPHILS % (AUTO) 10.2 %; HCT - HEMATOCRIT 40.9 % (42.0-52.0); HGB - HEMOGLOBIN 12.9 g/dL (14.0-18.0); LYMPHOCYTES % (AUTO) 21.2 %; MEAN CORPUSCULAR HEMOGLOBIN 29.7 pg (27.0-31.0); MEAN CORPUSCULAR HGB CONC 31.5 g/dL (32.0-36.0); MEAN PLATELET VOLUME 9.4 fL (7.4-11.4); MONOCYTES % (AUTO) 14.7 %; NEUTROPHILS % (AUTO) 52.1 %; PLT - PLATELET COUNT 400 10^3/uL (130-450); RED BLOOD COUNT 4.35 10^6/uL (4.70-6.10); RED CELL DISTRIBUTION WIDTH 13.2 % (12.0-15.0); WHITE BLOOD COUNT 12.2 x10^3/uL (4.8-10.8)
[2021-03-27 07:24] LABS: ABNORMAL LYMPHS % (MANUAL) 0 %; BAND NEUTROPHILS % (MANUAL) 0 %
[2021-03-27] MEDS ORDERED: IOVERSOL 320 100 ML VIAL IVP ONE ×2 (07:34→07:58)
--- NOTE | 2021-03-27 07:37 | ED Physician Documentation ---
History of Present Illness - Stated complaint Stated Complaint: R FLANK PX - Chief complaint Chief Complaint: Abd Pain - History obtained from History obtained from: Patient - Additonal information Additional information: Patient comes emergency department via EMS for chief complaint of chest/flank pain reported at home place where he lives. The patient states he does not feel that he has any chest pain, but does note that he was doing some cleaning and a board fell and hit his right flank. He states it made a little scrape, but this is several days ago and is already gone. The patient states he does not really know why he is here. He lives at home place and has a history of dementia. The patient tells me that actually, he lives in [place] and is appear visiting people and needs to go so we can get back to his friends. He denies any shortness of breath. No fever or chills. He denies any cough. Medics report the staff told him that patient had been complaining of right-sided chest pain and flank pain. No other complaints at this time. Review of Systems Ten Systems: 10 systems reviewed and negative Constitutional: reports: Reviewed and negative Eyes: reports: Reviewed and negative Ears: reports: Reviewed and negative Nose: reports: Reviewed and negative Throat: reports: Reviewed and negative Cardiac: reports: Reviewed and negative Respiratory: reports: Reviewed and negative GI: reports: Reviewed and negative : reports: Reviewed and negative Skin: reports: Reviewed and negative Musculoskeletal: reports: Reviewed and negative Neurologic: reports: Reviewed and negative Psychiatric: reports: Reviewed and negative Endocrine: reports: Reviewed and negative Immunocompromised: reports: Reviewed and negative PD PAST MEDICAL HISTORY - Past Medical History Cardiovascular: None Respiratory: None Neuro: Dementia Endocrine/Autoimmune: None Psych: None Derm: None - Past Surgical History Past Surgical History: No - Present Medications Home Medications: Ambulatory Orders Medication Instructions Recorded Confirmed Ginkgo Biloba 500 mg PO DAILY #60 capsule 09/16/19 Lidocaine Patch 5% [Lidoderm Patch] 1 patch TOP DAILY PRN #10 patch 09/23/19 Meloxicam [Mobic] 7.5 mg PO BID PRN #20 tablet 09/23/19 Hydrocodone/Acetaminophen 1 - 2 each PO Q6H PRN #14 tablet 09/30/19 [Hydrocodon-Acetaminophen 5-325] QUEtiapine [SEROquel] 1 tab PO DAILY 03/27/21 03/27/21 - Allergies Allergies/Adverse Reactions: Allergies Allergy/AdvReac Type Severity Reaction Status Date / Time No Known Drug Allergies Allergy Verified 03/27/21 06:36 - Social History Does the pt smoke?: No Smoking Status: Former smoker Does the pt drink ETOH?: No Does the pt have substance abuse?: No - Immunizations Immunizations are current?: Yes PD ED PE NORMAL - Vitals Vital signs reviewed: Yes - General General: No acute distress, Other (Patient is alert, articulate, and answers questions appropriately. He is well-appearing and in no apparent distress.) - HEENT HEENT: Atraumatic, PERRL, EOMI, Moist mucous membranes - Neck Neck: Supple, no meningeal sign - Cardiac Cardiac: RRR, No murmur - Respiratory Respiratory: No respiratory distress, Other (Mild rales with slightly decreased air movement right lower lung field.) - Abdomen Abdomen: Soft, Non tender, Non distended - Back Back: Other (No tenderness to palpation over the low back.) - Derm Derm: Normal color, Warm and dry, No rash, Other (,) - Extremities Extremities: No deformity, No edema - Neuro Neuro: lithopone charger 2-12 intact, No motor deficit, No sensory deficit, Normal speech, Other (Other than the confusion of thinking he lives in [place] and is visiting here, patient answers questions appropriately. He is alert and conversant.) - Psych Psych: Normal mood, Normal affect Results - Vitals Vitals: Vital Signs - 24 hr 03/27/21 12:00 Heart Rate 85 Respiratory 18 Rate Blood Pressure 123/79 O2 Saturation 93 Oxygen O2 Source Room air - Labs Labs: Laboratory Tests 03/27/21 03/27/21 03/27/21 06:57 06:57 08:19 WBC 12.2 H RBC 4.35 L Hgb 12.9 L Hct 40.9 L MCV 94.0 MCH 29.7 MCHC 31.5 L RDW 13.2 Plt Count 400 MPV 9.4 Neut # (Auto) Not Reportable Lymph # (Auto) Not Reportable [place] # (Auto) Not Reportable Eos # (Auto) Not Reportable Baso # (Auto) Not Reportable Absolute Nucleated RBC Not Reportable Total Counted 100 Band Neuts % (Manual) 0 Abnorm Lymph % (Manual) 0 Nucleated RBC % Not Reportable Neutrophils # (Manual) 7.4 H Lymphocytes # (Manual) 2.6 Monocytes # (Manual) 1.0 Eosinophils # (Manual) 1.0 H Basophils # (Manual) 0.2 H Differential Comment MANUAL DIFFERENTIAL WBC Morphology NORMAL APPEARANCE Platelet Estimate NORMAL (130-450,000) Platelet Morphology NORMAL APPEARANCE RBC Morph Micro Appear NORMAL APPEARANCE Sodium 138 Potassium 3.8 Chloride 103 Carbon Dioxide 25 Anion Gap 10.0 BUN 15 Creatinine 0.7 Estimated GFR (MDRD) 110 Glucose 112 H Calcium 8.9 Total Bilirubin 0.8 AST 17 ALT 25 Alkaline Phosphatase 95 Total Protein 7.2 Albumin 3.5 Globulin 3.7 Albumin/Globulin Ratio 0.9 L Lipase 31 Urine Color YELLOW Urine Clarity CLEAR Urine pH 6.5 Ur Specific [place] 1.010 Urine Protein NEGATIVE Urine Glucose (UA) NEGATIVE Urine Ketones NEGATIVE Urine Occult Blood NEGATIVE Urine Nitrite NEGATIVE Urine Bilirubin NEGATIVE Urine Urobilinogen 1 (NORMAL) Ur Leukocyte Esterase NEGATIVE Ur Microscopic Review NOT INDICATED Urine Culture Comments NOT INDICATED - Rads (name of study) CXR Radiology: Final report received, EMP read indepedently, EMP read contemporaneously (moderate R pleural effusion) CT chest Radiology: Final report received, EMP read indepedently, See rad report (pathologic destruction of multiple R ribs with pleural effusion and soft tissue masses, highly concerning for metastatic malignancy) PD MEDICAL DECISION MAKING - ED course Complexity details: reviewed results, re-evaluated patient, considered differential, d/w patient ED course: The patient was worked up with a chest x-ray, which showed a significant R pleural effusion. Radiologist had recommended CT scan of the patient's chest. Labs were obtained and IV was placed. CT showed concerning findings for metastatic neoplasm, with bony and lung lesions. I spoke with the pt's daughter, Sara, who is his POA, and informed her of the findings, as I did not feel the pt would be able to understand or remember our discussion, much less coordinate his own care. Sara expressed understanding. I have also contacted Festus Arias, the pt's primary care provider, to inform her of the findings. She has also expressed understanding, and her office will work with Sara to get appropriate, timely follow-up for Mr. Noel. At this point in time, the pt is stable and well-appearing, and is stable for d/c home. I have d/w Sara the usual indications for return. Departure - Departure Disposition: 01 Home, Self Care Clinical Impression: Pleural effusion Metastatic cancer Qualifiers: Area of secondary neoplastic involvement: bone Qualified Code(s): C79.51 - Secondary malignant neoplasm of bone Condition: Stable Instructions: ED Tumor [facility] Comments: Your chest x-ray shows a fluid collection in the lower portion of your right chest cavity. We got a CT scan because we were concerned that there may be a tumor causing this and unfortunately this is the case. You have to small tumors in your 1, as well as several ribs that have cancerous looking gross, with destruction of the bone. While this appears to have been growing over some time, it is very important that you get follow-up care as soon as possible to establish a treatment plan. To this end, I have spoken with both your daughter, Sara, as well as one your primary providers, CARLOS A Chadwick. They are both aware of the findings and will help coordinate the care that you need. Please call Ms. Arias's office either this afternoon or first thing tomorrow to schedule a follow-up appointment. They should also be reaching out to you to help with this, as well. Discharge Date/Time: 03/27/21 12:15
[2021-03-27 08:07] LABS: BASOPHILS # (MANUAL) 0.2 10^3/uL (0-0.1); BASOPHILS % (MANUAL) 2 %; DIFFERENTIAL COMMENT MANUAL DIFFERENTIAL; LYMPHOCYTES # (MANUAL) 2.6 10^3/uL (1.5-3.5); LYMPHOCYTES % (MANUAL) 21 %; NEUTROPHILS # (MANUAL) 7.4 10^3/uL (1.5-6.6); PLATELET ESTIMATE, MANUAL NORMAL (130-450,000) (NORMAL); PLATELET MORPHOLOGY NORMAL APPEARANCE (NORMAL); RBC MORPHOLOGY (MULTIPLE) NORMAL APPEARANCE (NORMAL); WBC MORPHOLOGY (MULTIPLE) NORMAL APPEARANCE (NORMAL)
[2021-03-27 08:29] LABS: BILIRUBIN,URINE NEGATIVE (NEGATIVE); GLUCOSE, URINE (UA) NEGATIVE (NEGATIVE); KETONES,URINE (UA) NEGATIVE (NEGATIVE); LEUKOCYTE ESTERASE, URINE NEGATIVE (NEGATIVE); NITRITE,URINE NEGATIVE (NEGATIVE); OCCULT BLOOD,URINE NEGATIVE (NEGATIVE); PH,URINE 6.5 PH (5.0-7.5); PROTEIN,URINE NEGATIVE (NEGATIVE); UROBILINOGEN,URINE 1 (NORMAL) E.U./dL (NORMAL)
[2021-03-27 08:31] LABS: CLARITY,URINE CLEAR (CLEAR)
--- NOTE | 2021-03-27 09:05 | XRAY Report ---
PROCEDURE: Ribs w/PA Chest RT INDICATIONS: right low chest wall pain, possible recent injury TECHNIQUE: 2 views of the right ribs were acquired, along with a single view chest. COMPARISON: 09/30/2019, 09/23/2019 FINDINGS: Surgical changes and devices: None. Bones and chest wall: There are lucencies involving the right 10th rib laterally suggestive of erosi ve changes with adjacent soft tissue calcification. Elsewhere, no additional discrete lesions or disp laced rib fracture identified. No suspicious bony lesions. Overlying soft tissues appear unremarkabl e. Lungs and pleura: There is a moderate right pleural effusion or hemothorax with associated right basi lar opacities consistent with compressive atelectasis or consolidation. There is pulmonary edema also noted. No definite pneumothorax. Mediastinum: Mediastinal contours appear normal. Heart size is normal. IMPRESSION: 1. Irregular appearance of the right 10th rib laterally which may reflect erosive changes or sequelae of a prior fracture. 2. Moderate size right pleural effusion or hemothorax. 3. Pulmonary edema. No definite pneumothorax. Findings are new from the prior studies and further evaluation is recommended with chest CT. Reviewed by: Arnulfo Zheng MD on 03/27/2021 9:04 AM [facility] Approved by: Arnulfo Zheng MD on 03/27/2021 9:04 AM PST Station ID: [id number]
--- NOTE | 2021-03-27 09:08 | CT Report ---
PROCEDURE: CHEST W INDICATIONS: chest pain, CW injury, RLL obliteration CONTRAST: IV CONTRAST: Optiray 320 ml: 100 PO CONTRAST: *NO PO CONTRAST TECHNIQUE: After the administration of intravenous contrast, 5 mm thick sections acquired from the pulmonary api fabian to the posterior costophrenic angles. 7 mm thick coronal MIP reformats were acquired. For radia tion dose reduction, the following was used: automated exposure control, adjustment of mA and/or kV according to patient size. COMPARISON: Rib series radiographs dated 03/27/2021 FINDINGS: CHEST: Lungs: Right middle lobe 2.9 x 2.8 cm pleural-based mass is noted. Scattered subsegmental scarring/at electasis. No acute consolidation. Diffuse peribronchial cuffing suggestive of nonspecific bronchiti s and/or reactive airways disease. Pleura: Moderate right pleural effusion with adjacent atelectasis. No pneumothorax. Heart: Normal in size. No pericardial effusion. Lymph nodes: No pathologically enlarged mediastinal or hilar lymphadenopathy. No axillary lymphadenop athy. Thyroid: Unremarkable Aorta: Normal in size. Scattered atheromatous calcifications seen in the aorta. Pulmonary arteries: Normal. Esophagus: Normal. Bones: Lytic destructive appearance of the lateral eighth and 10th ribs, without discrete displaced f racture. This is worrisome for osseous metastatic disease. There is also adjacent possible soft tissu e mass next to the destroyed lateral right 10th rib. There is also permeative appearance of the derek x. Upper abdomen: Normal. IMPRESSION: Moderate pleural effusion with adjacent atelectasis. Adjacent lytic destructive appearance of the lat eral eighth and 10th ribs, potentially with associated abnormal soft tissue. Findings overall concern ing for osseous metastases. Please correlate with right pleural fluid analysis. 2.9 cm right middle lobe pleural-based mass which is concerning for neoplasm. Adenocarcinoma along ot her possibilities is a concern. Findings (including all critical results) and recommendations were personally telephoned and discusse d with Dr. Wilson on 03-27-21 09:07 Reviewed by: Jose Wiggins MD on 03/27/2021 9:07 AM PST Approved by: Jose Wiggins MD on 03/27/2021 9:07 AM PST Station ID: [id number]
[2021-03-27 12:00] VITALS: BP 123/79
== END 2021-03-27 12:15 | disposition home or self-care (01) ==
LOC: EDUNIT# → ED 06:22
DX: J90 Pleural effusion, not elsewhere classified (principal); C79.51 Secondary malignant neoplasm of bone; F03.90 Unspecified dementia, unspecified severity, without behavioral disturbance, psychotic disturbance, mood disturbance, and anxiety
CPT/HCPCS: 36415; 71101; 71260; 80053; 81003; 83690; 85025; 99283; 99284; Q9967; 81001; 87086

== ENCOUNTER 2021-04-09 17:47 | Outpatient (CLI) | payer MEDICARE, MEDICAID | END 2021-04-09 17:48 | disposition EMS.NT | LOC: EMS 17:47 | DX: M54.9 Dorsalgia, unspecified (principal) ==